=== PATIENT | male | born 1975 | race Asian ===

== ENCOUNTER 2018-01-12 02:16 | Emergency (ER) | payer SELFPAY ==
[~2018-01-12] VITALS: Ht 165.1 cm; Wt 77.3 kg
[2018-01-12 02:55] LABS: BASOPHILS % (AUTO) 0.7 % (0.0-2.0); EOSINOPHILS % (AUTO) 1.3 % (1.0-6.0); HEMATOCRIT 41.9 % (41-53); HEMOGLOBIN 14.1 g/dL (13.5-17.5); LYMPHOCYTES # (AUTO) 3.4 K/uL (1.0-4.8); MEAN CORPUSCULAR HEMOGLOBIN 28.2 pg (26.0-34.0); MEAN CORPUSCULAR HGB CONC 33.6 G/dL (31.0-37.0); MEAN CORPUSCULAR VOLUME 84 fL (80-100); MONOCYTES # (AUTO) 0.9 K/uL (0.1-1.0); MONOCYTES % (AUTO) 8.2 % (2.0-9.0); NEUTROPHILS # (AUTO) 6.9 K/uL (1.8-7.7); NEUTROPHILS % (AUTO) 59.8 % (40.0-70.0); PLATELET COUNT (AUTO) 272 K/uL (150-450); RED BLOOD CELL COUNT(AUTO) 4.99 MIL/uL (4.50-5.90); RED CELL DISTRIBUTION WIDTH 14.9 % (11.5-14.5)
[2018-01-12 03:01] LABS: AMPHET/METH SCREEN,URINE POSITIVE (NEGATIVE); BARBITURATE SCREEN, URINE NEGATIVE (NEGATIVE); BENZODIAZEPINES SCREEN,URINE NEGATIVE (NEGATIVE); CANNABINOID SCREEN,URINE NEGATIVE (NEGATIVE); COCAINE SCREEN,URINE NEGATIVE (NEGATIVE); METHADONE SCREEN, URINE NEGATIVE (NEGATIVE); OPIATE SCREEN,URINE NEGATIVE (NEGATIVE)
[2018-01-12 03:11] LABS: INR 1.1 (0.9-1.1); PROTHROMBIN TIME 11.3 SEC (9.4-11.6)
[2018-01-12 03:12] LABS: PHENCYCLIDINE SCREEN,URINE NEGATIVE (NEGATIVE)
[2018-01-12 03:18] LABS: CALCIUM, TOTAL 8.4 mg/dL (8.8-10.5); CREATININE 1.53 mg/dL (0.60-1.30); POTASSIUM 3.5 mmol/L (3.5-5.1)
[2018-01-12 03:18] LABS: APPEARANCE,URINE CLEAR (CLEAR); BILIRUBIN,URINE NEGATIVE (NEGATIVE); GLUCOSE, URINE (UA) NEGATIVE (NEGATIVE); KETONES,URINE NEGATIVE (NEGATIVE); LEUKOCYTE ESTERASE ,URINE NEGATIVE (NEGATIVE); NITRATE,URINE NEGATIVE (NEGATIVE); OCCULT BLOOD,URINE MODERATE (NEGATIVE); PH,URINE 5.5 (5.0-8.0); PROTEIN,URINE SEE CONFIRM (NEGATIVE); UROBILINOGEN,URINE 0.2 mg/dL (<=1.0)
[2018-01-12 03:23] LABS: ALBUMIN 3.1 g/dL (3.4-5.0); BILIRUBIN,TOTAL 0.5 mg/dL (0.1-1.0)
[2018-01-12 03:42] LABS: SULFOSALICYLIC ACID,URINE 1+ (Negative)
[2018-01-12 03:44] LABS: BACTERIA,URINE None Seen /HPF (None Seen); RBC,URINE 0-2 /HPF (0-2); SQUAMOUS EPITHELIAL CELL,UR Rare /LPF (None Seen); WBC,URINE None Seen /HPF (0-5)
[2018-01-12 03:57] VITALS: BP 134/105
[2018-01-12] MEDS ORDERED: SODIUM CHLORIDE 0.9% 1,000 ML IV ONE (04:00)
[2018-01-13] MEDS ORDERED: AZIT250T9 PO (16:06)
== END 2018-01-12 04:32 | disposition home or self-care (01) ==
LOC: EMS 02:17
DX: J40 Bronchitis, not specified as acute or chronic (principal); F15.10 Other stimulant abuse, uncomplicated; F17.210 Nicotine dependence, cigarettes, uncomplicated
CPT/HCPCS: 36415; 71045; 80053; 80307; 81001; 83880; 84484; 85025; 85610; 93005; 96360; 99285; J7030

== ENCOUNTER 2019-03-14 16:12 | Inpatient (IN) | payer SELFPAY ==
[~2019-03-14] VITALS: Ht 170.2 cm; Wt 79.9 kg
[~2019-03-14 16:12] MED LIST: CARV3.1262 PO; COMBISP IH; FURO-151 PO; LISI10TA7 PO; SPIR25TA PO
[2019-03-14] MEDS ORDERED: SODIUM CHLORIDE 0.9% 1,000 ML IV ONE (16:45)
[2019-03-14 16:49] LABS: BASOPHILS % (AUTO) 0.4 % (0.0-2.0); EOSINOPHILS % (AUTO) 2.7 % (1.0-6.0); HEMATOCRIT 47.3 % (41-53); HEMOGLOBIN 15.8 g/dL (13.5-17.5); LYMPHOCYTES # (AUTO) 1.2 K/uL (1.0-4.8); LYMPHOCYTES % (AUTO) 11.3 % (22.0-44.0); MEAN CORPUSCULAR HEMOGLOBIN 29.2 pg (26.0-34.0); MEAN CORPUSCULAR HGB CONC 33.4 G/dL (31.0-37.0); MEAN CORPUSCULAR VOLUME 88 fL (80-100); MONOCYTES # (AUTO) 1.4 K/uL (0.1-1.0); MONOCYTES % (AUTO) 12.9 % (2.0-9.0); NEUTROPHILS # (AUTO) 7.6 K/uL (1.8-7.7); NEUTROPHILS % (AUTO) 72.7 % (40.0-70.0); PLATELET COUNT (AUTO) 237 K/uL (150-450); RED CELL DISTRIBUTION WIDTH 14.7 % (11.5-14.5)
[2019-03-14 17:02] LABS: CALCIUM, TOTAL 8.8 mg/dL (8.8-10.5); CREATININE 1.77 mg/dL (0.60-1.30); POTASSIUM 3.9 mmol/L (3.5-5.1)
[2019-03-14 17:07] LABS: PROTHROMBIN TIME 10.2 SEC (9.4-11.6)
[2019-03-14 17:27] LABS: ALBUMIN 3.4 g/dL (3.4-5.0); TOTAL PROTEIN, SERUM 7.7 g/dL (6.4-8.2)
[2019-03-14] MEDS ORDERED: ASPIRIN 325 MG TABLET PO ONE (17:45)
[2019-03-14 18:06] LABS: APPEARANCE,URINE CLEAR (CLEAR); BILIRUBIN,URINE NEGATIVE (NEGATIVE); GLUCOSE, URINE (UA) NEGATIVE (NEGATIVE); KETONES,URINE NEGATIVE (NEGATIVE); LEUKOCYTE ESTERASE ,URINE NEGATIVE (NEGATIVE); NITRATE,URINE NEGATIVE (NEGATIVE); OCCULT BLOOD,URINE SMALL (NEGATIVE); PROTEIN,URINE POS 1+ (NEGATIVE); UROBILINOGEN,URINE 0.2 mg/dL (<=1.0)
[2019-03-14 18:14] LABS: BACTERIA,URINE None Seen /HPF (None Seen); RBC,URINE 0-2 /HPF (0-2); SQUAMOUS EPITHELIAL CELL,UR None Seen /LPF (None Seen); WBC,URINE None Seen /HPF (0-5)
[2019-03-14] MEDS ORDERED: NITROGLYCERIN 2% (1 GM=INCH) PACKET TP ONE (18:15)
[2019-03-14] MEDS ORDERED: ONDANSETRON HCL 4 MG/2 ML VIAL IVP PRN ×2 (18:30→22:45)
[2019-03-14] MEDS ORDERED: ACETAMINOPHEN 325 MG TABLET PO PRN (18:30)
[2019-03-14] MEDS ORDERED: 0.9% SODIUM CHLORIDE 10 ML SYRINGE IVP PRN ×2 (18:30→22:45)
[2019-03-14] MEDS ORDERED: IPRATROPIUM BROMIDE 0.5 MG/2.5 ML NEB SOLUTION NEB PRN (22:45)
[2019-03-14] MEDS ORDERED: ZOLPIDEM TARTRATE 5 MG TABLET PO PRN (22:45)
[2019-03-14] MEDS ORDERED: ALBUTEROL SULFATE 2.5 MG/0.5 ML NEB SOLUTION NEB PRN (22:45)
[2019-03-14 23:22] VITALS: BP 104/60
[2019-03-14] MEDS: CARVEDILOL 3.125 MG TABLET PO SCH (23:36)
[2019-03-15] MEDS: IPRATROPIUM BROMIDE 0.5 MG/2.5 ML NEB SOLUTION NEB SCH ×4 (02:52→20:10)
[2019-03-15] MEDS: ALBUTEROL SULFATE 2.5 MG/0.5 ML NEB SOLUTION NEB SCH ×4 (02:52→20:10)
[2019-03-15 05:45] VITALS: BP 114/76
[2019-03-15 06:49] LABS: BASOPHILS % (AUTO) 0.5 % (0.0-2.0); EOSINOPHILS % (AUTO) 2.5 % (1.0-6.0); HEMATOCRIT 47.3 % (41-53); HEMOGLOBIN 15.8 g/dL (13.5-17.5); LYMPHOCYTES # (AUTO) 1.3 K/uL (1.0-4.8); LYMPHOCYTES % (AUTO) 13.5 % (22.0-44.0); MEAN CORPUSCULAR HEMOGLOBIN 29.6 pg (26.0-34.0); MEAN CORPUSCULAR HGB CONC 33.5 G/dL (31.0-37.0); MEAN CORPUSCULAR VOLUME 89 fL (80-100); MONOCYTES # (AUTO) 1.8 K/uL (0.1-1.0); MONOCYTES % (AUTO) 18.4 % (2.0-9.0); NEUTROPHILS # (AUTO) 6.2 K/uL (1.8-7.7); NEUTROPHILS % (AUTO) 65.1 % (40.0-70.0); PLATELET COUNT (AUTO) 216 K/uL (150-450); RED BLOOD CELL COUNT(AUTO) 5.34 MIL/uL (4.50-5.90); RED CELL DISTRIBUTION WIDTH 14.7 % (11.5-14.5)
[2019-03-15 07:47] LABS: ALBUMIN 3.3 g/dL (3.4-5.0); BILIRUBIN,TOTAL 0.8 mg/dL (0.1-1.0); CALCIUM, TOTAL 8.8 mg/dL (8.8-10.5); CREATININE 1.58 mg/dL (0.60-1.30); MAGNESIUM 1.9 mg/dL (1.80-2.40); POTASSIUM 3.7 mmol/L (3.5-5.1); TOTAL PROTEIN, SERUM 7.3 g/dL (6.4-8.2)
[2019-03-15 07:57] VITALS: BP 126/87
[2019-03-15] MEDS: SPIRONOLACTONE 25 MG TABLET PO SCH (08:32)
[2019-03-15] MEDS: ENOXAPARIN SODIUM 40 MG/0.4 ML PF SYRINGE SQ SCH (08:32)
[2019-03-15] MEDS: FUROSEMIDE 20 MG/2 ML VIAL IVP SCH ×3 (08:32→21:44)
[2019-03-15] MEDS: PANTOPRAZOLE SODIUM 40 MG/VIAL IVP SCH (08:32)
[2019-03-15] MEDS: DOCUSATE SODIUM 100 MG CAPSULE PO SCH ×2 (08:33→21:44)
[2019-03-15] MEDS: CARVEDILOL 3.125 MG TABLET PO SCH ×2 (09:00→21:44)
[2019-03-15] MEDS: LISINOPRIL 10 MG TABLET PO SCH (09:00)
[2019-03-15 11:49] VITALS: BP 106/72
[2019-03-15 16:20] VITALS: BP 134/79
[2019-03-15] MEDS: ACETAMINOPHEN 325 MG TABLET PO PRN ×2 (16:46→21:44)
[2019-03-15] MEDS: GuaiFENesin/D-METHORPHAN [SUGAR-FREE] 200-20MG/10 ML SYRUP UDCUP PO PRN (17:15)
[2019-03-15 17:33] LABS: AMPHET/METH SCREEN,URINE POSITIVE (NEGATIVE); BARBITURATE SCREEN, URINE NEGATIVE (NEGATIVE); BENZODIAZEPINES SCREEN,URINE NEGATIVE (NEGATIVE); CANNABINOID SCREEN,URINE NEGATIVE (NEGATIVE); COCAINE SCREEN,URINE NEGATIVE (NEGATIVE); METHADONE SCREEN, URINE NEGATIVE (NEGATIVE); OPIATE SCREEN,URINE NEGATIVE (NEGATIVE)
[2019-03-15 17:40] LABS: PHENCYCLIDINE SCREEN,URINE NEGATIVE (NEGATIVE)
[2019-03-15 19:44] VITALS: BP 140/83
[2019-03-15] MEDS ORDERED: OxyCODONE HCL/ACETAMINOPHEN 5-325 MG TABLET PO PRN ×2 (22:45→23:15)
[2019-03-15 23:56] VITALS: BP 137/75
[2019-03-16] MEDS ORDERED: OxyCODONE HCL/ACETAMINOPHEN 5-325 MG TABLET PO PRN (02:45)
[2019-03-16] MEDS: IPRATROPIUM BROMIDE 0.5 MG/2.5 ML NEB SOLUTION NEB SCH ×4 (03:46→20:34)
[2019-03-16] MEDS: ALBUTEROL SULFATE 2.5 MG/0.5 ML NEB SOLUTION NEB SCH ×4 (03:46→20:34)
[2019-03-16 04:37] VITALS: BP 144/79
[2019-03-16] MEDS: ENOXAPARIN SODIUM 40 MG/0.4 ML PF SYRINGE SQ SCH (08:06)
[2019-03-16] MEDS: LISINOPRIL 10 MG TABLET PO SCH (08:07)
[2019-03-16] MEDS: DOCUSATE SODIUM 100 MG CAPSULE PO SCH ×2 (08:09→21:00)
[2019-03-16] MEDS: SPIRONOLACTONE 25 MG TABLET PO SCH (08:09)
[2019-03-16] MEDS: PANTOPRAZOLE SODIUM 40 MG/VIAL IVP SCH (08:09)
[2019-03-16] MEDS: GuaiFENesin/D-METHORPHAN [SUGAR-FREE] 200-20MG/10 ML SYRUP UDCUP PO PRN ×2 (08:19→20:55)
[2019-03-16] MEDS: FUROSEMIDE 20 MG/2 ML VIAL IVP SCH ×3 (08:22→21:00)
[2019-03-16] MEDS: CARVEDILOL 3.125 MG TABLET PO SCH ×2 (08:22→21:00)
[2019-03-16 08:39] VITALS: BP 119/85
[2019-03-16 11:36] VITALS: BP 110/70
[2019-03-16 14:49] LABS: GLUCOMETER DEV NAME(LOC) 5S.1; GLUCOSE,POINT OF CARE 112 MG/DL (70-110)
[2019-03-16 15:53] VITALS: BP 108/71
[2019-03-16] MEDS: BACLOFEN 10 MG TABLET PO SCH ×2 (16:59→20:55)
[2019-03-16 20:12] VITALS: BP 107/66
[2019-03-17 00:24] VITALS: BP 93/57
[2019-03-17] MEDS: IPRATROPIUM BROMIDE 0.5 MG/2.5 ML NEB SOLUTION NEB SCH ×4 (02:00→20:28)
[2019-03-17] MEDS: ALBUTEROL SULFATE 2.5 MG/0.5 ML NEB SOLUTION NEB SCH ×4 (02:00→20:28)
[2019-03-17 07:34] LABS: BASOPHILS % (AUTO) 0.4 % (0.0-2.0); EOSINOPHILS % (AUTO) 3.7 % (1.0-6.0); HEMATOCRIT 52.7 % (41-53); HEMOGLOBIN 17.5 g/dL (13.5-17.5); LYMPHOCYTES # (AUTO) 1.8 K/uL (1.0-4.8); LYMPHOCYTES % (AUTO) 20.3 % (22.0-44.0); MEAN CORPUSCULAR HEMOGLOBIN 29.5 pg (26.0-34.0); MEAN CORPUSCULAR HGB CONC 33.3 G/dL (31.0-37.0); MEAN CORPUSCULAR VOLUME 89 fL (80-100); MONOCYTES # (AUTO) 1.1 K/uL (0.1-1.0); MONOCYTES % (AUTO) 12.4 % (2.0-9.0); NEUTROPHILS # (AUTO) 5.5 K/uL (1.8-7.7); NEUTROPHILS % (AUTO) 63.2 % (40.0-70.0); PLATELET COUNT (AUTO) 246 K/uL (150-450); RED BLOOD CELL COUNT(AUTO) 5.94 MIL/uL (4.50-5.90); RED CELL DISTRIBUTION WIDTH 14.8 % (11.5-14.5)
[2019-03-17 07:51] VITALS: BP 131/95
[2019-03-17 08:26] LABS: ALBUMIN 3.3 g/dL (3.4-5.0); BILIRUBIN,TOTAL 0.4 mg/dL (0.1-1.0); CALCIUM, TOTAL 8.9 mg/dL (8.8-10.5); CREATININE 1.5 mg/dL (0.60-1.30); MAGNESIUM 2.2 mg/dL (1.80-2.40); POTASSIUM 4.5 mmol/L (3.5-5.1); TOTAL PROTEIN, SERUM 7.6 g/dL (6.4-8.2)
[2019-03-17] MEDS: BACLOFEN 10 MG TABLET PO SCH ×3 (09:58→20:48)
[2019-03-17] MEDS: SPIRONOLACTONE 25 MG TABLET PO SCH (09:58)
[2019-03-17] MEDS: CARVEDILOL 12.5 MG TABLET PO SCH ×2 (09:58→20:48)
[2019-03-17] MEDS: LISINOPRIL 10 MG TABLET PO SCH (09:58)
[2019-03-17] MEDS: DOCUSATE SODIUM 100 MG CAPSULE PO SCH ×2 (09:58→20:48)
[2019-03-17] MEDS: ENOXAPARIN SODIUM 40 MG/0.4 ML PF SYRINGE SQ SCH (09:59)
[2019-03-17] MEDS: PANTOPRAZOLE SODIUM 40 MG/VIAL IVP SCH (09:59)
[2019-03-17] MEDS: FUROSEMIDE 20 MG/2 ML VIAL IVP SCH ×2 (09:59→20:48)
[2019-03-17 11:35] VITALS: BP 128/88
[2019-03-17 15:34] VITALS: BP 122/82
[2019-03-17 19:59] VITALS: BP 100/63
[2019-03-17] MEDS: GuaiFENesin/D-METHORPHAN [SUGAR-FREE] 200-20MG/10 ML SYRUP UDCUP PO PRN (20:48)
[2019-03-17 23:41] VITALS: BP 128/75
[2019-03-18] MEDS: IPRATROPIUM BROMIDE 0.5 MG/2.5 ML NEB SOLUTION NEB SCH ×3 (02:00→14:21)
[2019-03-18] MEDS: ALBUTEROL SULFATE 2.5 MG/0.5 ML NEB SOLUTION NEB SCH ×3 (02:00→14:21)
[2019-03-18 04:52] VITALS: BP 121/79
[2019-03-18 06:15] LABS: BASOPHILS % (AUTO) 0.6 % (0.0-2.0); HEMATOCRIT 51.5 % (41-53); HEMOGLOBIN 17.5 g/dL (13.5-17.5); LYMPHOCYTES # (AUTO) 2.7 K/uL (1.0-4.8); LYMPHOCYTES % (AUTO) 27.5 % (22.0-44.0); MEAN CORPUSCULAR HEMOGLOBIN 29.8 pg (26.0-34.0); MEAN CORPUSCULAR VOLUME 88 fL (80-100); MONOCYTES # (AUTO) 1.4 K/uL (0.1-1.0); MONOCYTES % (AUTO) 14.6 % (2.0-9.0); NEUTROPHILS # (AUTO) 5.2 K/uL (1.8-7.7); NEUTROPHILS % (AUTO) 53.3 % (40.0-70.0); PLATELET COUNT (AUTO) 269 K/uL (150-450); RED BLOOD CELL COUNT(AUTO) 5.87 MIL/uL (4.50-5.90); RED CELL DISTRIBUTION WIDTH 14.5 % (11.5-14.5)
[2019-03-18 06:39] LABS: ALBUMIN 3.5 g/dL (3.4-5.0); BILIRUBIN,TOTAL 0.5 mg/dL (0.1-1.0); CALCIUM, TOTAL 9.3 mg/dL (8.8-10.5); CREATININE 1.48 mg/dL (0.60-1.30); MAGNESIUM 2.1 mg/dL (1.80-2.40); POTASSIUM 4.4 mmol/L (3.5-5.1); TOTAL PROTEIN, SERUM 8.7 g/dL (6.4-8.2)
[2019-03-18 08:14] VITALS: BP 124/76
[2019-03-18] MEDS: LISINOPRIL 10 MG TABLET PO SCH (09:00)
[2019-03-18] MEDS ORDERED: GADOBUTROL 1 MMOL/ML 10 ML VIAL IVP ONE (09:36)
[2019-03-18] MEDS: PANTOPRAZOLE SODIUM 40 MG/VIAL IVP SCH (09:59)
[2019-03-18] MEDS: SPIRONOLACTONE 25 MG TABLET PO SCH (09:59)
[2019-03-18] MEDS: ENOXAPARIN SODIUM 40 MG/0.4 ML PF SYRINGE SQ SCH (09:59)
[2019-03-18] MEDS: GuaiFENesin/D-METHORPHAN [SUGAR-FREE] 200-20MG/10 ML SYRUP UDCUP PO PRN (09:59)
[2019-03-18] MEDS: FUROSEMIDE 20 MG/2 ML VIAL IVP SCH (09:59)
[2019-03-18] MEDS: CARVEDILOL 12.5 MG TABLET PO SCH (10:00)
[2019-03-18] MEDS: BACLOFEN 10 MG TABLET PO SCH (10:00)
[2019-03-18] MEDS: DOCUSATE SODIUM 100 MG CAPSULE PO SCH (10:00)
[2019-03-18 11:42] VITALS: BP 144/65
[2019-03-18] MEDS ORDERED: BACL10TA PO (14:53)
[2019-03-18] MEDS ORDERED: CARV25 PO (14:54)
[2019-03-18] MEDS ORDERED: CARVEDILOL 12.5 MG TABLET PO SCH (21:00)
== END 2019-03-18 15:35 | disposition home or self-care (01) | DRG 292 ==
LOC: EMS 16:12 → 5S 21:11
PROVIDERS: ADMIT Internal Medicine; ATTEND Internal Medicine
DX: I50.23 Acute on chronic systolic (congestive) heart failure (principal); N17.9 Acute kidney failure, unspecified; I42.9 Cardiomyopathy, unspecified; M46.46 Discitis, unspecified, lumbar region; F15.10 Other stimulant abuse, uncomplicated; F17.210 Nicotine dependence, cigarettes, uncomplicated; Z91.19 Patient's noncompliance with other medical treatment and regimen
CPT/HCPCS: 72131; 72158; 80307; 83735; 93005; 93306; 94640; A9585; C9113; G0378; J1650; J1940; J7030